=== PATIENT | female | born 1945 ===

== ENCOUNTER 2016-09-17 18:37 | Emergency (ER) | payer MEDICARE, OTHER ==
[2016-09-17 18:37] VITALS: BMI 24.1
[2016-09-17] MEDS ORDERED: Sodium Chloride 0.9% 500 ML IV ONE ×2 (19:37→19:42)
[2016-09-17 19:54] LABS: BASO % 0.6 % (0.0-2.0); EOS # 0.3 K/uL (0.0-0.7); EOS % 3.8 % (0.0-4.0); LYMPH % 25.1 % (20.0-40.0); MEAN CELL VOLUME 87.8 fL (81.0-99.0); MEAN CORPUSCULAR HGB CONC 34.2 g/dL (33.0-37.0); MEAN PLATELET VOLUME 9.5 fL (7.2-11.7); MONO # 0.5 K/uL (0.0-0.8); MONO % 5.8 % (0.0-10.0); RED CELL DISTRIBUTION WIDTH 13.7 % (11.5-14.5); WHITE BLOOD COUNT 8.1 K/uL (4.8-10.8)
[2016-09-17 19:58] LABS: CHLORIDE 102 mmol/L (98-107); POTASSIUM 3.9 mmol/L (3.6-5.2); SODIUM 142 mmol/L (132-148)
[2016-09-17 20:00] LABS: BILIRUBIN,TOTAL 0.3 mg/dL (0.2-1.3); CARBON DIOXIDE 27 mmol/L (22-30); GFR AFRICAN-AMERICAN > 60
[2016-09-17 20:01] LABS: ALB/GLOB RATIO 1.4 (1.0-2.1); ALKALINE PHOSPHATASE 66 U/L (38-126); ALT/SGPT 20 U/L (9-52); AST/SGOT 22 U/L (14-36); BLOOD UREA NITROGEN 21 mg/dL (7-17); CALCIUM 9.1 mg/dl (8.6-10.4); GLUCOSE,RANDOM 116 mg/dL (65-105)
[2016-09-17 20:22] LABS: RBC URINE 3 /hpf (0-3); URINE BILIRUBIN NEGATIVE (NEGATIVE); URINE BLOOD NEGATIVE (NEGATIVE); URINE COLOR Yellow (YELLOW); URINE GLUCOSE (UA) NORMAL (Normal); URINE KETONE NEGATIVE (NEGATIVE); URINE LEUKOCYTE ESTERASE NEG Leu/uL (Negative); URINE PROTEIN NEGATIVE (NEGATIVE); URINE UROBILINOGEN NORMAL mg/dL (0.2-1.0); WBC URINE 1 /hpf (0-5)
[2016-09-17] MEDS ORDERED: Sodium Chloride 0.9% 1,000 ML IV ONE (20:24)
--- NOTE | 2016-09-17 20:30 | C.PDOC ---
Time Seen by Provider: 09/17/16 19:30 Chief Complaint (Nursing): Cough, Cold, Congestion History Per: Patient Onset/Duration Of Symptoms: Days (1-2 weeks), Gradual Current Symptoms Are (Timing): Better Associated Symptoms: Cough (mild), Sputum (resolved), Nasal Congestion Severity: Moderate Additional History Per: Prior Records Past Medical History Reviewed: Historical Data, Nursing Documentation, Vital Signs Vital Signs: Last Vital Signs Temp 97.8 F 09/17/16 21:24 Pulse 60 09/17/16 21:24 Resp 18 09/17/16 21:24 BP 183/91 H 09/17/16 21:51 Pulse Ox 98 09/17/16 21:24 - Medical History PMH: Bronchitis, HTN, Osteoporosis Surgical History: Tonsillectomy - [facility] Procedures IMMOBILIZ/WOUND ATTN NEC (09/20/14) Family History: States: Unknown Family Hx - Social History Hx Tobacco Use: Yes Hx Alcohol Use: No Hx Substance Use: No - Immunization History Hx Tetanus Toxoid Vaccination: No Hx Influenza Vaccination: No Hx Pneumococcal Vaccination: No Review Of Systems Except As Marked, All Systems Reviewed And Found Negative. Constitutional: Positive for: Malaise. Negative for: Fever ENT: Positive for: Throat Pain (resolved) Cardiovascular: Negative for: Chest Pain Respiratory: Positive for: Cough, Shortness of Breath (on/off). Negative for: Hemoptysis Gastrointestinal: Positive for: Abdominal Pain (resolved). Negative for: Vomiting Genitourinary: Negative for: Dysuria Musculoskeletal: Negative for: Neck Pain, Back Pain Skin: Negative for: Rash Neurological: Negative for: Weakness, Numbness, Seizures, Altered Mental Status Physical Exam - Physical Exam Appears: Non-toxic, No Acute Distress Skin: Normal Color, Warm, Dry, No Rash Head: Atraumatic, Normacephalic Eye(s): bilateral: PERRL, EOMI Throat: Erythema, No Exudate, No Drooling, No Mass Neck: Normal ROM, Supple Cardiovascular: Rhythm Regular Respiratory: Normal Breath Sounds, No Accessory Muscle Use Gastrointestinal/Abdominal: Soft, No Tenderness Back: No CVA Tenderness Extremity: Normal ROM, No Pedal Edema, No Calf Tenderness Neurological/Psych: Oriented x3, Normal Motor, Normal Sensation ED Course And Treatment - Laboratory Results Result Diagrams: 09/17/16 19:48 09/17/16 19:48 Interpretation Of Abnormal: Mildly elevated BUN. ECG: Interpreted By Me, Viewed By Me ECG Rhythm: Sinus Rhythm ECG Interpretation: No Acute Changes Rate From EC O2 Sat by Pulse Oximetry: 100 Pulse Ox Interpretation: Normal - Radiology CXR: Interpreted by Me, Viewed By Me CXR Interpretation: Yes: No Acute Disease Progress Note: Pt was found to be hypertensive in the ED. Pt was given antihypertensive medication with improvement in BP. Reassessment Condition: Improved Progress - Interventions Interventions:: Observation, Intravenous fluid - Medications Administered Intravenous: Antihypertensive - Data Reviewed Data Reviewed: Lab, Diagnostic imaging, EKG, Old records - Patient Status Patient status: Mostly improved - Critical Care Citical Care: Excluding Proc Time Critical Care Time: 45 minutes - Continuity of Care Discussed patient case with:: Patient, ED Nurse - Patient Plan Patient Plan: Discharge, F/U with PCP Disposition Counseled Patient/Family Regarding: Studies Performed, Diagnosis, Need For Followup, Rx Given, Smoking Cessation - Disposition Referrals: Claire Quevedo MD [Medical Doctor] - Disposition: HOME/ ROUTINE Disposition Time: 23:05 Condition: IMPROVED Additional Instructions: Stop smoking. Eat a low salt diet. Follow up with your doctor this week for further evaluation and treatment. Return to the ER if you develop shortness of breath, chest pain, worsening of symptoms or if you have any other concerns. Prescriptions: Enalapril Maleate [Vasotec] 5 mg PO DAILY #30 tab Azithromycin [Zithromax] 1 dose PO DAILY #1 pkt Instructions: Acute Bronchitis (ED), Hypertension (ED) - Clinical Impression Clinical Impression: Hypertension, Bronchitis
[2016-09-17] MEDS ORDERED: Sodium Chloride 0.9% 1,000 ML ONE (21:21)
[2016-09-17 21:24] VITALS: PULSE 60
[2016-09-17] MEDS ORDERED: Enalaprilat 2.5 MG/2 ML IVP STA ×2 (21:44→22:56)
[2016-09-17] MEDS ORDERED: Enalaprilat 2.5 MG/2 ML ONE ×2 (21:48→22:59)
[2016-09-17 23:18] VITALS: BP 175/79; RESP 16; TEMP 97.7; O2SAT 97
--- NOTE | 2016-09-18 08:34 | RAD ---
PROCEDURE: CHEST RADIOGRAPH, 1 VIEW HISTORY: SOB, cough COMPARISON: 04/03/2014 FINDINGS: LUNGS: Diffuse increased interstitial lung markings suggestive for mild venous congestion. Small nodular density in the left mid lung zone which may represent vessel on end and or granuloma. Upper lobe granulomatous changes. Patchy left basilar airspace opacity. PLEURA: As above. CARDIOVASCULAR: Normal. OSSEOUS STRUCTURES: No significant abnormalities. VISUALIZED UPPER ABDOMEN: Normal. OTHER FINDINGS: None. IMPRESSION: Diffuse increased interstitial lung markings suggestive for mild venous congestion. Small nodular density in the left mid lung zone which may represent vessel on end and or granuloma. Upper lobe granulomatous changes. Patchy left basilar airspace opacity.
--- NOTE | 2016-09-18 11:55 | CARD ---
APPROVED REPORT EKG Measurement Heart [id number] <Conclusion> Normal sinus rhythm Normal ECG
== END 2016-09-17 23:17 | disposition home or self-care (01) ==
LOC: C.ER 18:37
DX: J40 Bronchitis, not specified as acute or chronic (principal); I10 Essential (primary) hypertension
CPT/HCPCS: 71010; 80053; 81001; 83880; 84484; 85025; 93005; 96361; 96374; 96376; 99285; J7040

== ENCOUNTER 2018-09-16 16:09 | Emergency (ER) | payer MEDICARE, OTHER ==
[2018-09-16 16:09] VITALS: BMI 24.1
--- NOTE | 2018-09-16 16:48 | C.PDOC ---
History Of Present Illness 72 y/o female presents to ED with 4 day history of cold symptoms, runny nose and congestion. Patient reports she started having green nasal discharge and felt feverish with some body aches. She had some left over amoxicillin that she has taken for 4 days with no relief and symptoms are persistent. Today, she now complains of back pain. Denies cough, nausea, vomiting. Time Seen by Provider: 09/16/18 16:32 Chief Complaint (Nursing): Cough, Cold, Congestion History Per: Patient History/Exam Limitations: no limitations Onset/Duration Of Symptoms: Days Current Symptoms Are (Timing): Still Present Past Medical History Reviewed: Historical Data, Nursing Documentation, Vital Signs Vital Signs: Last Vital Signs Temp 98 F 09/16/18 16:16 Pulse 65 09/16/18 16:16 Resp 20 09/16/18 16:16 BP 153/77 H 09/16/18 16:16 Pulse Ox 98 09/16/18 16:16 - Medical History PMH: Bronchitis, HTN, Osteoporosis Surgical History: Tonsillectomy - [facility] Procedures IMMOBILIZ/WOUND ATTN NEC (09/20/14) Family History: States: No Known Family Hx - Social History Hx Tobacco Use: Yes Hx Alcohol Use: No Hx Substance Use: No - Immunization History Hx Tetanus Toxoid Vaccination: No Hx Influenza Vaccination: No Hx Pneumococcal Vaccination: No Review Of Systems Constitutional: Positive for: Fever, Other (bodyaches) ENT: Positive for: Nose Discharge (green), Nose Congestion, Other (Runny nose) Respiratory: Negative for: Cough, Shortness of Breath Gastrointestinal: Negative for: Nausea, Vomiting Musculoskeletal: Positive for: Back Pain Physical Exam - Physical Exam Appears: Non-toxic, No Acute Distress Skin: Warm, Dry Head: Atraumatic, Normacephalic Eye(s): bilateral: Normal Inspection Oral Mucosa: Moist Throat: Normal, No Erythema Neck: Supple Chest: Symmetrical Cardiovascular: Rhythm Regular, No Murmur Respiratory: Normal Breath Sounds, No Rales, No Rhonchi, No Wheezing Gastrointestinal/Abdominal: Soft, No Tenderness Extremity: Bilateral: Atraumatic, Normal ROM Neurological/Psych: Oriented x3, Normal Speech, Normal Cognition ED Course And Treatment O2 Sat by Pulse Oximetry: 98 (RA) Pulse Ox Interpretation: Normal - Radiology CXR: Interpreted by Me CXR Interpretation: Yes: No Acute Disease (Granuloma SAMIRA) Medical Decision Making Medical Decision Making: Plan: --Chest XR Disposition Counseled Patient/Family Regarding: Studies Performed, Diagnosis, Need For Followup - Disposition Referrals: Claire Quevedo MD [Medical Doctor] - Disposition: HOME/ ROUTINE Disposition Time: 17:45 Condition: STABLE Prescriptions: Amoxicillin 875 mg PO BID #14 tablet Instructions: Bacterial Upper Respiratory Infection, Adult (DC) Forms: [employer] (Bengali) - Clinical Impression Clinical Impression: Upper respiratory infection - Scribe Statement The provider has reviewed the documentation as recorded by the Nir Sullivan Provider Attestation: All medical record entries made by the Nir were at my direction and personall y dictated by me. I have reviewed the chart and agree that the record accurately reflects my personal performance of the history, physical exam, medical decision making, and the department course for this patient. I have also personally directed, reviewed, and agree with the discharge instructions and disposition.
--- NOTE | 2018-09-16 18:01 | RAD ---
HISTORY: URI with back pain COMPARISON: Chest x-ray performed 09/17/16 TECHNIQUE: Chest PA and lateral, 2 views FINDINGS: LUNGS: Mild biapical pleural thickening. No focal consolidation. 4 mm left upper lobe nodular opacity re-identified which may represent calcified granuloma or prominent vessel on end. Please note that chest x-ray has limited sensitivity for the detection of pulmonary masses. PLEURA: No significant pleural effusion identified. No definite pneumothorax . CARDIOVASCULAR: Cardiomegaly. Atherosclerotic calcifications of the aorta. OSSEOUS STRUCTURES: Degenerative changes. VISUALIZED UPPER ABDOMEN: Unremarkable. OTHER FINDINGS: None. IMPRESSION: Mild biapical pleural thickening. Mild bibasilar atelectasis. 4 mm left upper lobe nodular opacity re-identified which may represent calcified granuloma or prominent vessel on end. Cardiomegaly. Atherosclerotic calcifications.
[2018-09-16 18:04] VITALS: BP 140/75; PULSE 66; RESP 16; TEMP 98.1; O2SAT 97
== END 2018-09-16 18:03 | disposition home or self-care (01) ==
LOC: C.ER 16:09
DX: J06.9 Acute upper respiratory infection, unspecified (principal); I10 Essential (primary) hypertension; M81.0 Age-related osteoporosis without current pathological fracture; Z72.0 Tobacco use